=== PATIENT | female | born 1985 | race Caucasian/White ===

== ENCOUNTER 2022-02-05 08:52 | Outpatient (CLI) | payer OTHER ==
--- NOTE | 2022-02-05 10:05 | CARDIAC PROCEDURE NOTE ---
Stress Test Report Service Date: 02/05/22 Service Time: 09:30 Ordering Provider: Jewel Ko Indication for Test: Assess for an ischemic contribution to patient's exertional dyspnea. Significant Medical History: Razia is referred for an exercise tolerance test today, to assess her exertional fatigue and dyspnea. She has had complex medical symptoms dating back to 2019, following a long "coldlike" illness. She experienced worsening migraines, arthralgias and dyspnea that was initially independent of activity. Along the way she underwent pulmonary function tests that she reports were normal to above average, with no change in her indices with bronchodilator administration. She was seen by a cloth bolt bander, who felt that her dyspnea symptoms could be due to laryngeal reflux syndrome. She was started on daily omeprazole treatment with reduction in her rest dyspnea and she reports that she now only experiences significant shortness of breath with exertion. She continues working locally and walking her 14 yr old dog on a daily basis, but slowly due to the dog's advanced age. She was able to take a hike last weekend that did involve some hills and upon which she did experience some shortness of breath, though perhaps less severe than she expected. She describes some difficulty "getting over the hump" to obtaining a full breath when feeling breathless and at times this has been associated with a sense of chest fullness, though she denies any chest discomfort that is not associated with her exertional dyspnea. She reports that an increased dose of Topamax has helped to decrease her migraine headache frequency and severity and allows her to be more functional. Cardiac Risk Factors: Razia reports occasional elevation of blood pressures, likely situational or due to medications, without diagnosis of hypertension. She denies history of diabetes, hyperlipidemia, family history of atherosclerotic disease and tobacco smoking ever. Type of Stress Test: Exercise Treadmill Test (ETT) Procedure: -Exercise Treadmill Test- After signing informed consent, the patient performed treadmill exercise using a Kiet protocol. The patient exercised for 6 minutes 47 seconds and achieved a peak heart rate of 190 (102 percent predicted maximum heart rate for age), and an estimated workload of 8.2 METS. The test was terminated primarily due to leg fatigue having reached 100% of predicted maximal heart rate. She might have been able to go a bit longer. Resting heart rate: 94 Peak heart rate: 190 Normal response to exercise. Resting BP: 129/95 Peak BP: 155/83 Elevated diastolic BP at rest, with subsequent normal response of systolic and diastolic BPs to exercise. Rhythm during exercise: Sinus rhythm throughout. Symptoms: During the exercise phase of the study she described increasing dyspnea that was not limiting, though it did increase in early recovery and then slowly resolve in late recovery. She described NO chest discomfort at any time. EKG at rest showed normal sinus rhythm, normal in all aspects. EKG at peak stress showed J-point depression with upsloping ST segments NOT meeting diagnostic EKG criteria for ischemia. In Recovery HR and BP were gradually decreasing, remaining moderately elevated at 4:00 (129, 140/87). No imaging was ordered with this stress test. IBruno MD, was present throughout this treadmill stress study and supervised it in its entirety. Summary: 1) Exercise tolerance significantly decreased for age and sex as evidenced by SASKIA of 26%. 2) Normal resting EKG. 3) Adequate level of exercise/hemodynamic stress was achieved on this treadmill stress test. 4) Modestly hypertensive at rest, with normal response of systolic and diastolic BPs to exercise. 5) No ischemic changes by EKG criteria were seen at peak stress. 6) No imaging was ordered with this test. CONCLUSIONS: 1) Overall, reassuring results with no symptoms or EKG evidence of inducible ischemia. 2) Reduced exercise tolerance for age, lickely multifactorial, including co- existent non-cardiovascular symptoms and attendant chronic reduction in exercise.
== END 2022-02-05 08:53 | disposition home or self-care (01) ==
LOC: DI 08:52
DX: R06.00 Dyspnea, unspecified (principal)
CPT/HCPCS: 93017